=== PATIENT | male | born 1975 | race Hispanic/Latino ===

== ENCOUNTER 2017-12-14 04:58 | Emergency (ER) | payer SELFPAY ==
[2017-12-14] MEDS ORDERED: NA CHLORIDE 0.9% 1,000 ML ONE ×4 (05:33→11:52)
[2017-12-14] MEDS ORDERED: ONDANSETRON 4 MG/2 ML VIAL ONE (05:33)
[2017-12-14 06:01] LABS: Absolute Lymphocytes (CBC) 0.9 K/uL (0.7-4.9); Absolute Monocytes 1.2 K/uL (0.1-1.3); Absolute Neutrophil 4.6 K/uL (1.8-8.0); Basophils % 0.4 % (0-1.3); Eosinophils % 5.3 % (0-4.4); Hematocrit 46.9 % (39.6-49.0); MCH 31.3 pg (27.0-35.0); MCV 91.7 fL (80-100); MPV 9.8 fL (7.6-11.3); Monocytes % 17.3 % (3.3-12.3); RBC Red Blood Cell Count 5.12 M/uL (4.33-5.43)
[2017-12-14 06:04] LABS: Potassium 3.3 mEq/L (3.6-5.0)
[2017-12-14 06:10] LABS: Albumin 3.9 g/dL (3.2-5.5); Bilirubin Direct 0.3 mg/dL (0-0.2); Bilirubin Total 1.3 mg/dL (0.3-1.2); Protein, Total 6.6 g/dL (6.0-8.3)
[2017-12-14] MEDS ORDERED: KCL 20 MEQ/100 mL IVPB 20 MEQ/100 ML BAG IV ONE (06:18)
[2017-12-14 07:07] LABS: Blood Morphology Comment NOT SEEN (NOT SEEN); Platelet Estimate ADEQ
--- NOTE | 2017-12-14 08:27 | RAD REPORT ---
EXAM DESCRIPTION: CT - Abdomen Pelvis W Contrast - 12/14/2017 7:51 am CLINICAL HISTORY: Abdominal pain, nausea vomiting and diarrhea COMPARISON: None. TECHNIQUE: Biphasic, helical CT imaging of the abdomen and pelvis was performed following 100 ml non -ionic IV contrast. Oral contrast was given. All CT scans are performed using dose optimization technique as appropriate and may include automated exposure control or mA/KV adjustment according to patient size. FINDINGS: No suspicious findings in the lung bases. The liver, spleen, and pancreas show no suspicious findings. Gallbladder and biliary tree are also wi thout suspicious finding. Liver does demonstrate a mild diffuse fatty infiltration pattern. Symmetric renal function is seen with no hydronephrosis or suspicious renal mass. No pyelonephritis o r acute renal parenchymal process seen. A 2.5 cm cyst is present upper pole left kidney. No significa nt adrenal finding. Partially filled urinary bladder shows no suspicious finding. Prostate gland and seminal vesicles within normal limits. No gastric dilatation or gastric wall thickening. No delay in transit of contrast into the small dioni l. Duodenum is normal. Beginning at the ligament of Treitz, there is progressive dilatation of the sm all bowel. There is an abrupt transition back to normal diameter small bowel in the mid abdomen at th e umbilical level. At the transition point there is no mass or wall thickening. Patient has had no pr ior surgery. Distal small bowel is decompressed. Oral contrast has reached the small bowel distal to the transition point. The appendix is normal. No acute colon process. No free air, free fluid or inflammatory stranding. No mass or bulky lymphadenopathy. Small fat fille d inguinal hernias are present. No suspicious bony findings. IMPRESSION: Partial small bowel obstruction pattern. There is dilatation of the entire jejunum with an abrupt transition back to normal diameter small bowel in the mid abdomen umbilical level. At the transition point there is no intrinsic or extrinsic mass. Oral contrast has extended beyond th e transition point. Etiology for the small bowel dilatation is unknown. Adhesion or internal hernia would be unlikely giv en the absence of any prior surgery. No intussusception. No abscess, free air or other surgically emergent finding. Mild fatty infiltration pattern to the liver.
[2017-12-14] MEDS ORDERED: NA CHLORIDE 0.9% 250 ML ONE (08:28)
[2017-12-14] MEDS ORDERED: METRONIDAZOLE 500mg IVPB 0 MG/0 ML BAG IV ONE (08:39)
[2017-12-14] MEDS ORDERED: CIPROFLOXACIN 400mg IV 0 MG/0 ML BAG IV ONE (08:39)
--- NOTE | 2017-12-14 09:22 | ER ---
Nurse's Notes [facility] Name: Naresh Wheatley Age: 42 yrs Sex: Male : 1975 Arrival Date: 12/14/2017 Time: 05:03 Bed 18 Private MD: Diagnosis: Other intestinal obstruction-partial sbo;Abdominal tenderness;Vomiting;Unspecified jaundice;Hypokalemia Presentation: 12/14 05:00 Presenting complaint: Patient states: He has had nausea, vomiting and diarrhea since ea Monday. Pt reports abdominal pain started tonight and he has been having bouts of diarrhea every thirty minutes. Transition of care: patient was not received from another setting of care. Onset of symptoms was December 14, 2017. Initial Sepsis Screen: Does the patient meet any 2 criteria? No. Patient's initial sepsis screen is negative. Does the patient have a suspected source of infection? No. Patient's initial sepsis screen is negative. Care prior to arrival: Medication(s) given: Pepto Bismol at about 2200 last night. 05:00 Method Of Arrival: Ambulatory ea 05:00 Acuity: CAHGO 3 ea Triage Assessment: 05:00 General: Appears uncomfortable, Behavior is calm, appropriate for age. Pain: Complains ea of pain in abdomen Pain currently is 8 out of 10 on a pain scale. Quality of pain is described as crampy. EENT: No signs and/or symptoms were reported regarding the EENT system. Neuro: Level of Consciousness is awake, alert, obeys commands, Oriented to person, place, time, situation. Cardiovascular: Heart tones S1 S2 present Patient's skin is warm and dry. Respiratory: Airway is patent Respiratory effort is even, unlabored, Respiratory pattern is regular, symmetrical, Breath sounds are clear bilaterally. GI: Abdomen is distended, Bowel sounds present X 4 quads. Abd is soft X 4 quads Abdomen is tender to palpation X 4 quads. GI: Reports lower abdominal pain, upper abdominal pain, bloating, cramping, diarrhea, nausea, vomiting, since monday. : No signs and/or symptoms were reported regarding the genitourinary system. Historical: - Allergies: 05:39 No Known Allergies; ea - Home Meds: 05:16 None [Active]; ea - PMHx: 05:16 None; ea - PSHx: 05:16 None; ea - Immunization history:: Adult Immunizations up to date. - Social history:: Smoking status: Patient uses tobacco products, smokes one pack cigarettes per day. - Family history:: not pertinent. - Hospitalizations: : No recent hospitalization is reported. Screenin:18 Abuse screen: Denies threats or abuse. Nutritional screening: No deficits noted. ea Tuberculosis screening: No symptoms or risk factors identified. Fall Risk None identified. Assessment: 05:39 Reassessment: Patient and/or family updated on plan of care and expected duration. Pain ea level reassessed. Patient is alert, oriented x 3, equal unlabored respirations, skin warm/dry/pink. 05:58 Reassessment: Pt finished drinking contrast, CT notified. ea 06:34 Reassessment: Patient and/or family updated on plan of care and expected duration. Pain ea level reassessed. Patient is alert, oriented x 3, equal unlabored respirations, skin warm/dry/pink. 07:00 General: Appears in no apparent distress. comfortable, Behavior is calm, cooperative. rb1 Pain: Complains of pain in abdomen Pain currently is 6 out of 10 on a pain scale. Neuro: Level of Consciousness is awake, alert, obeys commands, Oriented to person, place, time, situation. Cardiovascular: Capillary refill < 3 seconds is brisk in bilateral fingers. Respiratory: Airway is patent Respiratory effort is even, unlabored, Respiratory pattern is regular, symmetrical. Derm: Skin is pink, warm \\T\\ dry. 08:00 Reassessment: Patient appears in no apparent distress at this time. Patient and/or rb1 family updated on plan of care and expected duration. Pain level reassessed. Patient is alert, oriented x 3, equal unlabored respirations, skin warm/dry/pink. 09:20 Reassessment: Pt requesting to go outside and smoke. Pt was notified that this is a aa5 smoke-free campus and pt states "well I don't care I am going to rip out my IV if you don't take it out". Pt was encouraged to stay and speak to Dr. Gandhi about radiology and lab results, pt states "I'm not going to stay, I'm leaving" . Vital Signs: 05:00 BP 151 / 100; Pulse 100; Resp 18; Temp 97.5; Pulse Ox 98% on R/A; Weight 98.88 kg; ea Height 5 ft. 9 in. (175.26 cm); Pain 7/10; 06:34 BP 138 / 100; Pulse 87; Resp 18; Pulse Ox 99% on R/A; ea 07:00 BP 141 / 95; Pulse 89; Resp 17; Pulse Ox 98% on R/A; rb1 08:00 BP 118 / 75; Pulse 87; Resp 17; Pulse Ox 100% ; rb1 05:00 Body Mass Index 32.19 (98.88 kg, 175.26 cm) ea ED Course: 05:03 Patient arrived in ED. al2 05:11 Opal Pulido RN is Primary Nurse. ea 05:13 Ladarius Gordon MD is Attending Physician. rn 05:15 Triage completed. ea 05:20 Patient has correct armband on for positive identification. Bed in low position. Call ea light in reach. Side rails up X 1. 05:20 Arm band placed on right wrist. Patient placed in an exam room, on a stretcher, on ea pulse oximetry. 05:30 Inserted saline lock: 20 gauge in right antecubital area, using aseptic technique. ea Blood collected. 07:07 Report given to Reggie SWEET. ea 07:20 Attending Physician role handed off by Ladarius Gordon MD jennifer 07:20 Sean Gandhi MD is Attending Physician. jennifer 07:50 CT Abd/Pelvis - W/Contrast In Process Unspecified. EDMS 09:20 IV discontinued, intact, bleeding controlled, No redness/swelling at site. Pressure aa5 dressing applied. 09:22 No provider procedures requiring assistance completed. rb1 09:24 Primary Nurse role handed off by Opal Pulido RN aa5 10:08 Pippa Chun, MICKI is Primary Nurse. rb1 Administered Medications: Discontinued: NS 0.9% 250 ml IV at calculated rate once 05:36 Drug: Zofran 4 mg Route: IVP; Site: right antecubital; ea 06:32 Follow up: Response: No adverse reaction; Marked relief of symptoms ea 05:37 Drug: NS 0.9% 1000 ml Route: IV; Rate: 1000 ml; Site: right antecubital; ea 06:32 Follow up: Response: No adverse reaction; IV Status: Completed infusion; IV Intake: ea 1000ml 06:33 Drug: Potassium Chloride 20 mEq Route: IV; Rate: calculated rate; Site: right ea antecubital; 08:30 Follow up: IV Status: Completed infusion rb1 08:32 Drug: NS 0.9% 250 ml {Note: Administered to dilute the potassium drip..} Route: IV; rb1 Rate: calculated rate; Site: right antecubital; 08:35 Follow up: IV Status: Order to discontinue infusion rb1 08:36 Drug: NS 0.9% 1000 ml Route: IV; Rate: 1 bolus; Site: right antecubital; rb1 09:22 Follow up: IV Status: Completed infusion; pt. requested to stop the IV fluids because rb1 he was leaving. 10:10 Not Given (pt. eloped): Cipro 400 mg 200 ml IVPB once over 60 mins rb1 10:10 Not Given (Patient Refused; pt. eloped): Flagyl 500 mg 100 ml IVPB at 200 ml/hr once rb1 over 30 mins Intake: 06:32 IV: 1000ml; Total: 1000ml. ea Outcome: 09:22 Patient left the ED. aaAnjum 09:22 Eloped from patient exam room. rb1 09:22 Condition: stable 09:22 Patient left the ED. rb1 Signatures: Dispatcher [employer] EDMS Sean Gandhi MD MD cha Nieto, Roman, MD MD rn Calderon, Audri RN RN aa5 Pippa Chun, RN RN rb1 Opal Pulido RN RN ea Love, Angelica al2 Corrections: (The following items were deleted from the chart) 10:15 10:14 Patient left the ED. rb1 rb1
--- NOTE | 2017-12-14 09:22 | EDPHYS ---
Physician Documentation [facility] Name: Naresh Wheatley Age: 42 yrs Sex: Male : 1975 Arrival Date: 12/14/2017 Time: 05:03 Bed 18 Private MD: ED Physician Sean Gandhi HPI: 12/14 05:53 This 42 yrs old Male presents to ER via Ambulatory with complaints of Diarrhea.rn 05:53 The patient presents to the emergency department with nausea, vomiting, diarrhea, rn abdominal pain. Onset: The symptoms/episode began/occurred 2 day(s) ago. Possible causes: unknown. Severity of symptoms: At their worst the symptoms were moderate in the emergency department the symptoms are unchanged. The patient has not experienced similar symptoms in the past. Reports nausea/vomiting for 2 days, no longer vomiting, but having frequent non-bloody diarrhea, + mid vague abd pain. No fever. . Historical: - Allergies: 05:39 No Known Allergies; ea - Home Meds: 05:16 None [Active]; ea - PMHx: 05:16 None; ea - PSHx: 05:16 None; ea - Immunization history:: Adult Immunizations up to date. - Social history:: Smoking status: Patient uses tobacco products, smokes one pack cigarettes per day. - Family history:: not pertinent. - Hospitalizations: : No recent hospitalization is reported. ROS: 05:53 Constitutional: Negative for fever, chills, and weight loss, Eyes: Negative for injury, rn pain, redness, and discharge, Cardiovascular: Negative for chest pain, palpitations, and edema, Respiratory: Negative for shortness of breath, cough, wheezing, and pleuritic chest pain, Abdomen/GI: Negative for constipation MS/Extremity: Negative for injury and deformity, Skin: Negative for injury, rash, and discoloration, Neuro: Negative for headache, numbness, tingling, and seizure. Exam: 05:53 Constitutional: This is a well developed, well nourished patient who is awake, alert, rn and in no acute distress. Head/Face: Normocephalic, atraumatic. Eyes: Pupils equal round and reactive to light, extra-ocular motions intact. Lids and lashes normal. Conjunctiva and sclera are non-icteric and not injected. Cornea within normal limits. Periorbital areas with no swelling, redness, or edema. Neck: Trachea midline, no thyromegaly or masses palpated, and no cervical lymphadenopathy. Supple, full range of motion without nuchal rigidity, or vertebral point tenderness. No Meningismus. Cardiovascular: Regular rate and rhythm with a normal S1 and S2. No gallops, murmurs, or rubs. Normal PMI, no JVD. No pulse deficits. Respiratory: Lungs have equal breath sounds bilaterally, clear to auscultation and percussion. No rales, rhonchi or wheezes noted. No increased work of breathing, no retractions or nasal flaring. Abdomen/GI: soft, + mild periumbilical tenderness, no reobund, no peritoneal signs, no masses MS/ Extremity: Pulses equal, no cyanosis. Neurovascular intact. Full, normal range of motion. Equal circumference. Neuro: Awake and alert, GCS 15, oriented to person, place, time, and situation. Cranial nerves II-XII grossly intact. Motor strength 5/5 in all extremities. Sensory grossly intact. Vital Signs: 05:00 BP 151 / 100; Pulse 100; Resp 18; Temp 97.5; Pulse Ox 98% on R/A; Weight 98.88 kg; ea Height 5 ft. 9 in. (175.26 cm); Pain 7/10; 06:34 BP 138 / 100; Pulse 87; Resp 18; Pulse Ox 99% on R/A; ea 07:00 BP 141 / 95; Pulse 89; Resp 17; Pulse Ox 98% on R/A; rb1 08:00 BP 118 / 75; Pulse 87; Resp 17; Pulse Ox 100% ; rb1 05:00 Body Mass Index 32.19 (98.88 kg, 175.26 cm) ea MDM: 05:13 Patient medically screened. rn 12/14 05:19 Order name: Basic Metabolic Panel; Complete Time: 06:14 rn 12/14 05:19 Order name: CBC with Diff; Complete Time: 07:16 rn 12/14 05:19 Order name: Creatinine for Radiology; Complete Time: 06:06 rn 12/14 05:19 Order name: Hepatic Function; Complete Time: 06:14 rn 12/14 05:19 Order name: Lipase; Complete Time: 06:14 rn 12/14 05:19 Order name: Flu; Complete Time: 07:16 rn 12/14 05:19 Order name: CT Abd/Pelvis - W/Contrast; Complete Time: 08:32 rn 12/14 06:05 Order name: Manual Differential; Complete Time: 07:16 EDMS 12/14 07:52 Order name: Hepatitis Panel jennifer 12/14 05:19 Order name: IV Saline Lock; Complete Time: 05:30 rn 12/14 05:19 Order name: Labs collected and sent; Complete Time: 05:30 rn Administered Medications: Discontinued: NS 0.9% 250 ml IV at calculated rate once 05:36 Drug: Zofran 4 mg Route: IVP; Site: right antecubital; ea 06:32 Follow up: Response: No adverse reaction; Marked relief of symptoms ea 05:37 Drug: NS 0.9% 1000 ml Route: IV; Rate: 1000 ml; Site: right antecubital; ea 06:32 Follow up: Response: No adverse reaction; IV Status: Completed infusion; IV Intake: ea 1000ml 06:33 Drug: Potassium Chloride 20 mEq Route: IV; Rate: calculated rate; Site: right ea antecubital; 08:30 Follow up: IV Status: Completed infusion rb1 08:32 Drug: NS 0.9% 250 ml {Note: Administered to dilute the potassium drip..} Route: IV; rb1 Rate: calculated rate; Site: right antecubital; 08:35 Follow up: IV Status: Order to discontinue infusion rb1 08:36 Drug: NS 0.9% 1000 ml Route: IV; Rate: 1 bolus; Site: right antecubital; rb1 09:22 Follow up: IV Status: Completed infusion; pt. requested to stop the IV fluids because rb1 he was leaving. 10:10 Not Given (pt. eloped): Cipro 400 mg 200 ml IVPB once over 60 mins rb1 10:10 Not Given (Patient Refused; pt. eloped): Flagyl 500 mg 100 ml IVPB at 200 ml/hr once rb1 over 30 mins Disposition: 12/14/17 09:22 Patient left the facility after being seen by provider. Preliminary diagnosis are Other intestinal obstruction - partial sbo, Abdominal tenderness, Vomiting, Unspecified jaundice, Hypokalemia. - Patient left due to (see nurse's notes). - Condition is Stable. - Problem is new. - Symptoms have improved. Signatures: Dispatcher [employer] EDSean Goddard MD MD jennifer Gordon, Ladarius, MD MD rn Gomes, Sindi, RN RN aa5 Pippa Chun, RN RN rb1 Opal Pulido RN RN virgilio Corrections: (The following items were deleted from the chart) 10:05 09:22 12/14/2017 09:22 Patient left the facility after being seen by provider. Reason jennifer stated they are leaving due to (see nurse's notes). aa5 10:14 10:05 12/14/2017 09:22 Patient left the facility after being seen by provider. rb1 Preliminary diagnosis is Other intestinal obstruction - partial sbo; Abdominal tenderness; Vomiting; Unspecified jaundice; Hypokalemia. Reason stated they are leaving due to (see nurse's notes). Condition is Stable. Problem is new. Symptoms have improved. jennifer
[2017-12-14] MEDS ORDERED: NICOTINE 21 MG/PAT TD ONE (11:51)
[2017-12-14] MEDS ORDERED: CIPROFLOXACIN 400mg IV 400 MG/200 ML BAG IV ONE (11:51)
[2017-12-14] MEDS ORDERED: METRONIDAZOLE 500mg IVPB 500 MG/100 ML BAG IV ONE (11:52)
[2017-12-17 04:52] LABS: HBsAG Nonreactive (Nonreactive); Hepatitis A IgM Antibody Nonreactive
== END 2017-12-14 10:14 | disposition left against medical advice (07) ==
LOC: ER 04:58
DX: K56.699 Other intestinal obstruction unspecified as to partial versus complete obstruction (principal); R17 Unspecified jaundice; E87.6 Hypokalemia; R10.819 Abdominal tenderness, unspecified site; F17.210 Nicotine dependence, cigarettes, uncomplicated
CPT/HCPCS: 36415; 74177; 80048; 80074; 80076; 83690; 85025; 87804; 96361; 96365; 96366; 96375; 99284; J0744; J2405; J7030; Q9967

== ENCOUNTER 2017-12-14 10:26 | Inpatient (IN) | payer SELFPAY ==
--- NOTE | 2017-12-14 11:36 | EDPHYS ---
Physician Documentation [facility] Name: Naresh Wheatley Age: 42 yrs Sex: Male : 1975 Arrival Date: 12/14/2017 Time: 10:35 Bed 13 Private MD: ED Physician Sean Gandhi HPI: 12/14 11:29 This 42 yrs old Male presents to ER via Ambulatory with complaints of jennifer Abdominal Pain. 11:29 The patient presents with abdominal pain. Onset: The symptoms/episode began/occurred 3 jennifer day(s) ago. The patient presents to the emergency department with nausea, vomiting. Onset: The symptoms/episode began/occurred 3 day(s) ago. Possible causes:. The symptoms are aggravated by nothing. The symptoms are alleviated by nothing. Associated signs and symptoms: The patient has no apparent associated signs or symptoms. The symptoms do not radiate. Associated signs and symptoms: Pertinent positives: nausea and vomiting. Historical: - Allergies: 10:41 No Known Allergies; aj - Home Meds: 10:41 None [Active]; aj - PMHx: 10:41 None; aj - PSHx: 10:41 None; aj - Immunization history:: Adult Immunizations up to date. - Social history:: Smoking status: Patient uses tobacco products, smokes one pack cigarettes per day. - Family history:: not pertinent. ROS: 11:29 Constitutional: Negative for fever, chills, and weight loss, Eyes: Negative for injury, jennifer pain, redness, and discharge, ENT: Negative for injury, pain, and discharge, Neck: Negative for injury, pain, and swelling, Cardiovascular: Negative for chest pain, palpitations, and edema, Respiratory: Negative for shortness of breath, cough, wheezing, and pleuritic chest pain, Back: Negative for injury and pain, : Negative for injury, bleeding, discharge, and swelling, MS/Extremity: Negative for injury and deformity, Skin: Negative for injury, rash, and discoloration, Neuro: Negative for headache, weakness, numbness, tingling, and seizure, Psych: Negative for depression, anxiety, suicide ideation, homicidal ideation, and hallucinations, Allergy/Immunology: Negative for hives, rash, and allergies, Endocrine: Negative for neck swelling, polydipsia, polyuria, polyphagia, and marked weight changes, Hematologic/Lymphatic: Negative for swollen nodes, abnormal bleeding, and unusual bruising. 11:29 Abdomen/GI: Positive for abdominal pain, nausea, vomiting, and diarrhea, of the right upper quadrant, left upper quadrant, right lower quadrant and left lower quadrant. Exam: 11:29 Constitutional: This is a well developed, well nourished patient who is awake, alert, jennifer and in no acute distress. Head/Face: Normocephalic, atraumatic. ENT: Nares patent. No nasal discharge, no septal abnormalities noted. Tympanic membranes are normal and external auditory canals are clear. Oropharynx with no redness, swelling, or masses, exudates, or evidence of obstruction, uvula midline. Mucous membranes moist. Neck: Trachea midline, no thyromegaly or masses palpated, and no cervical lymphadenopathy. Supple, full range of motion without nuchal rigidity, or vertebral point tenderness. No Meningismus. Chest/axilla: Normal chest wall appearance and motion. Nontender with no deformity. No lesions are appreciated. Cardiovascular: Regular rate and rhythm with a normal S1 and S2. No gallops, murmurs, or rubs. Normal PMI, no JVD. No pulse deficits. Respiratory: Lungs have equal breath sounds bilaterally, clear to auscultation and percussion. No rales, rhonchi or wheezes noted. No increased work of breathing, no retractions or nasal flaring. Back: No spinal tenderness. No costovertebral tenderness. Full range of motion. Male : Normal genitalia with no discharge or lesions. MS/ Extremity: Pulses equal, no cyanosis. Neurovascular intact. Full, normal range of motion. Neuro: Awake and alert, GCS 15, oriented to person, place, time, and situation. Cranial nerves II-XII grossly intact. Motor strength 5/5 in all extremities. Sensory grossly intact. Cerebellar exam normal. Normal gait. Psych: Awake, alert, with orientation to person, place and time. Behavior, mood, and affect are within normal limits. 11:29 Eyes: Sclera: icterus. 11:29 Abdomen/GI: Inspection: distension, Bowel sounds: hyperactive, Palpation: mild abdominal tenderness, moderate abdominal tenderness, in the suprapubic area, right upper quadrant, left upper quadrant, right lower quadrant and left lower quadrant, Liver: is firm, Hernia: not appreciated. Vital Signs: 10:41 BP 168 / 96; Pulse 93; Resp 18; Temp 98.5; Pulse Ox 98% on R/A; Weight 98.88 kg; Height aj 5 ft. 9 in. (175.26 cm); Pain 8/; 13:00 BP 152 / 87; Pulse 91; Resp 18; Temp 98.2; Pulse Ox 98% on R/A; ph 10:41 Body Mass Index 32.19 (98.88 kg, 175.26 cm) aj MDM: 11:[address] [facility] 11:46 Data reviewed: vital signs, nurses notes, lab test result(s), EKG, radiologic studies, [facility] CT scan, plain films. 12/14 11:45 Order name: Abdomen W Erect EDNE 12/14 11:45 Order name: CONS Physician Consult [facility] 12/14 11:45 Order name: CONS Physician Consult EDNE Administered Medications: 12:22 Drug: Flagyl 500 mg Volume: 100 ml; Route: IVPB; Rate: 200 ml/hr; Infused Over: 30 ph mins; Site: right antecubital; 13:44 Follow up: Response: No adverse reaction; IV Status: Completed infusion ph 12:22 Drug: Nicoderm CQ 21 mg/24 hr 21 mg {Note: applied to R upper arm.} Route: Transdermal; ph Site: affected area; 13:43 Follow up: Response: No adverse reaction ph 12:23 Drug: NS 0.9% 1000 ml Route: IV; Rate: 1 bolus; Site: right antecubital; ph 13:44 Follow up: Response: No adverse reaction; IV Status: Completed infusion ph 13:00 Drug: Cipro 400 mg Volume: 200 ml; Route: IVPB; Infused Over: 60 mins; Site: right ph antecubital; 13:44 Follow up: Response: No adverse reaction; IV Status: Infusion continued upon admission ph Disposition: 12/14/17 11:35 Hospitalization ordered by Portia Jones for Inpatient Admission. Preliminary diagnosis are Abdominal tenderness, Vomiting, Other intestinal obstruction - partiual sbo, Hypokalemia, Unspecified jaundice. - Bed requested for Telemetry/MedSurg (Inpatient). - Status is Inpatient Admission. ph - Condition is Fair. - Problem is new. - Symptoms have improved. UTI on Admission? No Signatures: Dispatcher [employer] EDCarla Sol, RN RN Renetta Allen RN RN aj Anderson, Corey, MD MD cha Hall, Patricia, RN RN ph Corrections: (The following items were deleted from the chart) 12:47 11:35 Hospitalization Ordered by Portia Jones MD for Inpatient Admission. Preliminary dw diagnosis is Abdominal tenderness; Vomiting; Other intestinal obstruction - partiual sbo; Hypokalemia; Unspecified jaundice. Bed requested for Telemetry/MedSurg (Inpatient). Status is Inpatient Admission. Condition is Fair. Problem is new. Symptoms have improved. UTI on Admission? No. [facility] 13:45 12:47 12/14/2017 11:35 Hospitalization Ordered by Portia Jones MD for Inpatient ph Admission. Preliminary diagnosis is Abdominal tenderness; Vomiting; Other intestinal obstruction - partiual sbo; Hypokalemia; Unspecified jaundice. Bed requested for Telemetry/MedSurg (Inpatient). Status is Inpatient Admission. Condition is Fair. Problem is new. Symptoms have improved. UTI on Admission? No. dw
--- NOTE | 2017-12-14 11:36 | ER ---
Nurse's Notes [facility] Name: Naresh Wheatley Age: 42 yrs Sex: Male : 1975 Arrival Date: 12/14/2017 Time: 10:35 Bed 13 Private MD: Diagnosis: Abdominal tenderness;Vomiting;Other intestinal obstruction-partiual sbo;Hypokalemia;Unspecified jaundice Presentation: 12/14 10:39 Presenting complaint: Patient states: Reports lower abdominal pain that started on aj Monday. Patient seen in this ER earlier today and eloped, was called to come back. Transition of care: patient was not received from another setting of care. Onset of symptoms was December 10, 2017. Initial Sepsis Screen: Does the patient meet any 2 criteria? No. Patient's initial sepsis screen is negative. Does the patient have a suspected source of infection? No. Patient's initial sepsis screen is negative. Care prior to arrival: None. 10:39 Method Of Arrival: Ambulatory 10:39 Acuity: CHAGO 3 aj Triage Assessment: 10:41 General: Appears in no apparent distress. comfortable, Behavior is calm, cooperative, aj appropriate for age. Pain: Complains of pain in right lower quadrant and left lower quadrant. Neuro: Level of Consciousness is awake, alert, obeys commands, Oriented to person, place, time, situation, Appropriate for age. Respiratory: Airway is patent Respiratory effort is even, unlabored, Respiratory pattern is regular, symmetrical. GI: Reports lower abdominal pain, bloating. Derm: Skin is intact, is healthy with good turgor, Skin is pink, warm \T\ dry. normal. Historical: - Allergies: 10:41 No Known Allergies; aj - Home Meds: 10:41 None [Active]; aj - PMHx: 10:41 None; aj - PSHx: 10:41 None; aj - Immunization history:: Adult Immunizations up to date. - Social history:: Smoking status: Patient uses tobacco products, smokes one pack cigarettes per day. - Family history:: not pertinent. Screenin:41 Abuse screen: Denies threats or abuse. Denies injuries from another. Nutritional ph screening: No deficits noted. Tuberculosis screening: No symptoms or risk factors identified. Fall Risk None identified. Assessment: 11:30 General: Appears in no apparent distress. comfortable, well groomed, Behavior is calm, ph cooperative, appropriate for age. Pain: Complains of pain in abdomen. Neuro: Level of Consciousness is awake, alert, obeys commands, Oriented to person, place, time, situation. Cardiovascular: Capillary refill < 3 seconds Patient's skin is warm and dry. Respiratory: Airway is patent Respiratory effort is even, unlabored. GI: Bowel sounds present X 4 quads. Abd is soft X 4 quads Abdomen is tender to palpation X 4 quads. Reports lower abdominal pain, upper abdominal pain, cramping, nausea. Derm: Skin is intact, is healthy with good turgor, Skin is pink, warm \T\ dry. Musculoskeletal: Circulation, motion, and sensation intact. Range of motion: intact in all extremities. 12:30 Reassessment: Patient appears in no apparent distress at this time. Patient and/or ph family updated on plan of care and expected duration. Pain level reassessed. Patient is alert, oriented x 3, equal unlabored respirations, skin warm/dry/pink. Pt resting quietly, awaiting radiology results and room assignment, family at bedside. 13:39 Reassessment: Patient appears in no apparent distress at this time. Patient and/or ph family updated on plan of care and expected duration. Pain level reassessed. Patient is alert, oriented x 3, equal unlabored respirations, skin warm/dry/pink. Report called to [place] SWEET, pt taken to inpatient room via wheelchair. Vital Signs: 10:41 BP 168 / 96; Pulse 93; Resp 18; Temp 98.5; Pulse Ox 98% on R/A; Weight 98.88 kg; Height aj 5 ft. 9 in. (175.26 cm); Pain 8/10; 13:00 BP 152 / 87; Pulse 91; Resp 18; Temp 98.2; Pulse Ox 98% on R/A; ph 10:41 Body Mass Index 32.19 (98.88 kg, 175.26 cm) ED Course: 10:35 Patient arrived in ED. aj 10:41 Triage completed. aj 10:41 Arm band placed on right wrist. Patient placed in an exam room. aj 11:25 Sean Gandhi MD is Attending Physician. jennifer 11:29 Olga Langford RN is Primary Nurse. ph 11:34 Portia Jones MD is Hospitalizing Provider. jennifer 13:41 Patient has correct armband on for positive identification. Placed in gown. Bed in low ph position. Call light in reach. Side rails up X 1. Pulse ox on. NIBP on. Warm blanket given. 13:41 No provider procedures requiring assistance completed. ph 13:42 Inserted saline lock: 20 gauge in right antecubital area, using aseptic technique. ph Patient admitted, IV remains in place. Administered Medications: 12:22 Drug: Flagyl 500 mg Volume: 100 ml; Route: IVPB; Rate: 200 ml/hr; Infused Over: 30 ph mins; Site: right antecubital; 13:44 Follow up: Response: No adverse reaction; IV Status: Completed infusion ph 12:22 Drug: Nicoderm CQ 21 mg/24 hr 21 mg {Note: applied to R upper arm.} Route: Transdermal; ph Site: affected area; 13:43 Follow up: Response: No adverse reaction ph 12:23 Drug: NS 0.9% 1000 ml Route: IV; Rate: 1 bolus; Site: right antecubital; ph 13:44 Follow up: Response: No adverse reaction; IV Status: Completed infusion ph 13:00 Drug: Cipro 400 mg Volume: 200 ml; Route: IVPB; Infused Over: 60 mins; Site: right ph antecubital; 13:44 Follow up: Response: No adverse reaction; IV Status: Infusion continued upon admission ph Outcome: 11:35 Decision to Hospitalize by Provider. [facility] 13:42 Admitted to Med/surg accompanied by tech, family with patient, via wheelchair, room ph 220, with chart. 13:42 Condition: stable 13:42 Instructed on the need for admit. 13:45 Patient left the ED. ph Signatures: Renetta Keane, RN RN Sean Roberts MD MD cha Hall, Patricia RN RN ph
[2017-12-14] MEDS ORDERED: NS KCL 20MEQ 20 MEQ/1,000 ML BAG IV SCH (12:00)
[2017-12-14] MEDS ORDERED: METRONIDAZOLE 500mg IVPB 500 MG/100 ML BAG IV SCH (12:30)
[2017-12-14] MEDS ORDERED: CIPROFLOXACIN 400mg IV 400 MG/200 ML BAG IV SCH (12:30)
--- NOTE | 2017-12-14 13:09 | RAD REPORT ---
EXAM DESCRIPTION: RAD - Abdomen W Erect - 12/14/2017 1:00 pm CLINICAL HISTORY: Pain COMPARISON: 12/14/2017 FINDINGS: Multiple dilated small bowel loops are seen, greatest in the left upper quadrant, compatib le with partial mechanical small bowel obstruction. No suspicious calcifications. No significant bony findings. Contrast is present in the urinary bladder and in the colon. IMPRESSION: Moderate partial mechanical small bowel obstruction.
[2017-12-14] MEDS ORDERED: NA CHLORIDE 0.9% 1,000 ML IV SCH (13:33)
[2017-12-14] MEDS ORDERED: ONDANSETRON 4 MG/2 ML VIAL IV PRN (13:33)
[2017-12-14] MEDS ORDERED: ACETAMINOPHEN 500 MG TAB PO PRN (13:33)
--- NOTE | 2017-12-14 14:53 | P.HP ---
Certification for Inpatient Patient admitted to: Observation With expected LOS: <2 Midnights Patient will require the following post-hospital care: None Practitioner: I am a practitioner with admitting privileges, knowledge of patient current condition, hospital course, and medical plan of care. Services: Services provided to patient in accordance with Admission requirements found in Title 42 Section 412.3 of the Code of Federal Regulations Patient History Date of Service: 12/14/17 Primary Care Provider: None Reason for admission: SBO History of Present Illness: 42 y/o M with no PMHx presented to the ED with abd pain was found to have SBO and was referred for admission. However Pt left AMA from the ER first time. He returned to the ER again due to worsening pain and was referred again for admission. Before I can see the patient, he left AMA again. Pt was refusing all care here in the hospital and wanted to order Pizza. Pt was notified by RN that he cannot have anything by mouth and need to follow reccs by Doctor. He then proceeded to leave AMA. I was not able to assess the pt and he left before I Saw the patient. Allergies No Known Allergies Allergy (Unverified 01/18/16 13:23) Review of Systems is unable to be obtained Physical Examination - Vital Signs Temperature: 98.2 F Blood Pressure: 152/87 Pulse: 91 Respirations: 18 - Physical Exam Other Physical/Emotional Findings: Unable to do Assessment and Plan - Problems (Diagnosis) (1) SBO (small bowel obstruction) Status: Acute Plan: Partial SBO - Plan patient left AMA before I could assess the patient. - Advance Directives Does patient have a Living Will: No Does patient have a Durable POA for Healthcare: No
== END 2017-12-14 14:36 | disposition left against medical advice (07) | DRG 390 ==
LOC: ER 10:26 → ERHOLD 11:37 → 2ND 13:33
PROVIDERS: ADMIT Family Medicine; ATTEND Family Medicine
DX: K56.609 Unspecified intestinal obstruction, unspecified as to partial versus complete obstruction (principal); Z53.21 Procedure and treatment not carried out due to patient leaving prior to being seen by health care provider; F17.210 Nicotine dependence, cigarettes, uncomplicated
CPT/HCPCS: 36415; 74019; 84443; 96365; 99285

== ENCOUNTER 2017-12-14 17:41 | Emergency (ER) | payer SELFPAY ==
--- NOTE | 2017-12-14 18:55 | ER ---
Nurse's Notes [facility] Name: Naresh Wheatley Age: 42 yrs Sex: Male : 1975 Arrival Date: 12/14/2017 Time: 17:45 Bed Waiting Private MD: Diagnosis: Presentation: 12/14 17:59 Presenting complaint: Patient states: Patient eloped from this hospital and went to eat aj after being told he was NPO. Returning to ER to be treated for bowel obstruction. Transition of care: patient was not received from another setting of care. Onset of symptoms was December 14, 2017. Initial Sepsis Screen: Does the patient meet any 2 criteria? No. Patient's initial sepsis screen is negative. Does the patient have a suspected source of infection? No. Patient's initial sepsis screen is negative. Care prior to arrival: None. 17:59 Method Of Arrival: Ambulatory 17:59 Acuity: CHAGO 3 aj Triage Assessment: 18:01 General: Appears in no apparent distress. comfortable, Behavior is calm, cooperative, aj appropriate for age. Pain: Complains of pain in abdomen. Neuro: Level of Consciousness is awake, alert, obeys commands, Oriented to person, place, time, situation, Appropriate for age. Respiratory: Airway is patent Respiratory effort is even, unlabored, Respiratory pattern is regular, symmetrical. GI: Abdomen is round Reports lower abdominal pain, upper abdominal pain, bloating, nausea. Derm: Skin is intact, is healthy with good turgor, Skin is pink, warm \T\ dry. normal. Historical: - Allergies: 18:01 No Known Allergies; aj - Home Meds: 18:01 None [Active]; aj - PMHx: 18:01 None; aj - PSHx: 18:01 None; aj - Immunization history:: Adult Immunizations up to date. - Social history:: Smoking status: Patient uses tobacco products, smokes one pack cigarettes per day. Assessment: 18:53 Reassessment: Eloped after speaking to Dr Jones. Vital Signs: 18:01 BP 135 / 88; Pulse 100; Resp 16; Temp 98.9; Pulse Ox 98% on R/A; Weight 101.15 kg; aj Height 5 ft. 9 in. (175.26 cm); Pain 5/10; 18:01 Body Mass Index 32.93 (101.15 kg, 175.26 cm) rudy ED Course: 17:45 Patient arrived in ED. sb2 18:00 Triage completed. aj 18:01 Arm band placed on right wrist. Patient placed in waiting room. aj 18:54 Portia Jones MD is Attending Physician. aj Administered Medications: No medications were administered Outcome: 18:54 Eloped from waiting room, Spoke with Dr Jones in ER, eloped after aj 18:54 Patient left the ED. aj Signatures: Renetta Keane, RN RN Marcelina Mai sb2
== END 2017-12-14 18:54 | disposition left against medical advice (07) ==
LOC: ER 17:41
DX: Z02.9 Encounter for administrative examinations, unspecified (principal)
CPT/HCPCS: 99281

== ENCOUNTER 2021-04-30 23:41 | Emergency (ER) | payer SELFPAY ==
[2021-05-01 01:03] LABS: Urine Blood Negative (Negative); Urine Glucose 2+ (Negative); Urine Protein Negative (Negative); Urine Specific Gravity 1.015 (1.005-1.030); Urine pH 5.5 (5.0-7.0)
[2021-05-01 01:06] LABS: Absolute Lymphocytes (CBC) 1.6 K/uL (0.7-4.9); Basophils % 0.7 % (0-1.3); Hematocrit 44.5 % (39.6-49.0); Lymphocytes % 12.2 % (15.3-44.8); MPV 9.7 fL (7.6-11.3); RBC Red Blood Cell Count 4.89 M/uL (4.33-5.43)
[2021-05-01] MEDS ORDERED: NA CHLORIDE 0.9% 2,000 ML ONE (01:11)
[2021-05-01 02:59] LABS: ALT/SGPT 36 U/L (12-78); Albumin 3.3 g/dL (3.4-5.0); Alkaline Phosphatase 166 U/L (45-117); BUN Blood Urea Nitrogen 14 mg/dL (7-18); Bicarbonate 17 mmol/L (21-32); Bilirubin Direct 0.1 mg/dL (0-0.2); Bilirubin Total 0.5 mg/dL (0.2-1.0); Glucose Level 371 mg/dL (74-106); Lipase 404 U/L (73-393); Sodium Level 134 mmol/L (136-145)
[2021-05-01 03:00] LABS: Potassium 3.6 mmol/L (3.5-5.1)
[2021-05-01 03:01] LABS: AST/SGOT 17 U/L (15-37)
[2021-05-01] MEDS ORDERED: NA CHLORIDE 0.9% 1,000 ML ONE (03:49)
[2021-05-01] MEDS ORDERED: INSULIN -REGULAR HUMAN 50 UNIT/0.5 ML ML ONE (03:49)
--- NOTE | 2021-05-01 04:17 | EDPHYS ---
Physician Documentation [facility] Name: Naresh Wheatley Age: 45 yrs Sex: Male : 1975 Arrival Date: 04/30/2021 Time: 23:56 Bed 15 Private MD: ED Physician Nehemias Guerrero HPI: 05/01 00:35 This 45 yrs old Male presents to ER via Ambulatory with complaints of Elevated cp Blood Glucose. 00:35 The patient or guardian reports hyperglycemia, polydipsia, polyuria. cp 00:35 Onset: The symptoms/episode began/occurred for weeks. Associated signs and symptoms: cp Pertinent positives: abdominal pain. Current symptoms: In the emergency department the patient's symptoms are unchanged from the initial presentation, despite home interventions. Historical: - Allergies: 00:04 No Known Allergies; lh3 - PMHx: 00:04 None; lh3 - Immunization history:: Adult Immunizations not up to date. - Social history:: Smoking status: Patient reports the use of cigarette tobacco products, smokes one pack cigarettes per day. ROS: 00:40 Constitutional: Negative for body aches, chills, fever, poor PO intake. cp 00:40 Cardiovascular: Negative for chest pain, edema, palpitations. cp 00:40 Respiratory: Negative for cough, shortness of breath, wheezing. 00:40 Abdomen/GI: Negative for abdominal pain, vomiting, diarrhea, constipation, anorexia, black/tarry stool, rectal bleeding. 00:40 : Negative for burning with urination. 00:40 Neuro: Negative for altered mental status, dizziness, headache, weakness. 00:40 Endocrine: Positive for polydipsia, polyuria. 00:40 All other systems are negative. Exam: 00:45 Constitutional: The patient appears in no acute distress, alert, awake, cp non-diaphoretic, non-toxic, well developed, well nourished. 00:45 Head/Face: Normocephalic, atraumatic. cp 00:45 Eyes: Periorbital structures: appear normal, Conjunctiva: normal, no exudate, no injection, Sclera: no appreciated abnormality, Lids and lashes: appear normal, bilaterally. 00:45 ENT: External ear(s): are unremarkable, Nose: is normal, Mouth: Lips: moist, Oral mucosa: pink and intact, moist, Posterior pharynx: Airway: no evidence of obstruction, patent. 00:45 Chest/axilla: Inspection: normal, Palpation: is normal, no crepitus, no tenderness. 00:45 Cardiovascular: Rate: tachycardic, Rhythm: regular, Edema: is not appreciated, JVD: is not appreciated. 00:45 Respiratory: the patient does not display signs of respiratory distress, Respirations: normal, no use of accessory muscles, no retractions, labored breathing, is not present, Breath sounds: are clear throughout, no decreased breath sounds, no stridor, no wheezing. 00:45 Abdomen/GI: Inspection: abdomen appears normal, Bowel sounds: active, all quadrants, Palpation: soft, in all quadrants, mild abdominal tenderness, in the left upper quadrant and left lower quadrant, rebound tenderness, is not appreciated, involuntary guarding, is not appreciated. 00:45 Back: pain, is absent, ROM is normal. 00:45 Neuro: Orientation: to person, place \T\ time. Mentation: is normal. Vital Signs: 00:00 BP 149 / 111; Pulse 110; Resp 18; Temp 99.1(O); Pulse Ox 99% on R/A; Height 5 ft. 9 in. lh3 (175.26 cm) (R); 02:57 BP 142 / 82; Pulse 89; Resp 18; Temp 98.2; Pulse Ox 100% ; Pain 0/10; sj1 04:30 BP 140 / 80; Pulse 76; Resp 18; Temp 98.4; Pulse Ox 99% ; Pain 0/10; sj1 MDM: 00:07 Patient medically screened. cp 01:00 Differential diagnosis: DKA, hyperglycemia, new onset diabetes. cp 04:15 Data reviewed: vital signs, nurses notes, lab test result(s), radiologic studies, CT cp scan. 04:15 Counseling: I had a detailed discussion with the patient and/or guardian regarding: the cp historical points, exam findings, and any diagnostic results supporting the discharge/admit diagnosis, lab results, radiology results, the need for outpatient follow up, for definitive care, a family practitioner, to return to the emergency department if symptoms worsen or persist or if there are any questions or concerns that arise at home. Response to treatment: the patient's symptoms have markedly improved after treatment, and as a result, I will discharge patient. ED course: VSS. Labs and CT abdomen/pelvis reviewed. Will discharge to home for continued monitoring. Patient instructed on need for urgent f/u with family physician. 05/01 00:20 Order name: Glucose, Ancillary Testing; Complete Time: 00:32 EDAR 05/01 00:32 Interpretation: Reviewed. 05/01 00:33 Order name: Basic Metabolic Panel; Complete Time: 03:14 05/01 03:17 Interpretation: Normal except: NA 134; CO2 17; GLUC 371; CA 8.1. 05/01 00:33 Order name: CBC with Diff; Complete Time: 01:19 05/01 01:20 Interpretation: Normal except: WBC 13.40; MCHC 36.9; REGINA% 78.7; LYM% 12.2; NEUT A 10.6. 05/01 00:33 Order name: Hepatic Function; Complete Time: 03:14 05/01 04:05 Interpretation: Normal except: ALK 166; ALB 3.3; GLOB 3.7; A/G 0.9. 05/01 00:33 Order name: Lipase; Complete Time: 03:14 05/01 00:33 Order name: Ketone, Serum; Complete Time: 03:14 05/01 02:20 Interpretation: Reviewed. 05/01 00:34 Order name: CT Abd/Pelvis - IV Contrast Only 05/01 01:02 Order name: Urine Dipstick-Ancillary; Complete Time: 01:19 EDAR 05/01 01:20 Interpretation: Normal except: UGLUC 2+; UKET 3+. 05/01 03:07 Order name: Glucose, Ancillary Testing; Complete Time: 03:14 EDAR 05/01 04:20 Order name: Glucose, Ancillary Testing EDAR 05/01 00:33 Order name: IV Saline Lock; Complete Time: 01:03 05/01 00:33 Order name: Labs collected and sent; Complete Time: 01:03 05/01 00:33 Order name: Urine Dipstick-Ancillary (obtain specimen); Complete Time: 01:03 05/01 02:50 Order name: Accucheck Blood Glucose; Complete Time: 03:07 cp Administered Medications: 01:03 Drug: NS 0.9% 1000 ml Route: IV; Rate: 1 bolus; Site: right antecubital; sj1 02:27 Follow up: IV Intake: 1000ml sj1 01:03 Drug: NS 0.9% 1000 ml Route: IV; Rate: 1 bolus; Site: right antecubital; sj1 02:27 Follow up: IV Intake: 1000ml sj1 03:30 Drug: NovoLIN R (insulin regular human) 5 units {Co-Signature: dc2 (Marivel Melvin sj1 RN).} Route: Sub-Q; Site: right lower abdomen; 04:19 Follow up: Response: No adverse reaction sj1 03:33 Drug: NS 0.9% 1000 ml Route: IV; Rate: 1 bolus; Site: right antecubital; sj1 04:06 Follow up: IV Intake: 1000ml sj1 04:20 Follow up: IV Intake: 1000ml sj1 Point of Care Testing: Blood Glucose: 02:57 Blood Glucose: 302 mg/dL; sj1 Ranges: Critical Glucose Levels:Adult <50 mg/dl or >400 mg/dl <40 mg/dl or >180 mg/dl Disposition: 04:20 Chart complete. cp 06:50 Co-signature as Attending Physician, Nehemias Guerrero MD. [email or web address] Disposition Summary: 05/01/21 04:16 Discharge Ordered Location: Home cp Problem: new cp Symptoms: have improved cp Condition: Stable cp Diagnosis - Diabetes mellitus due to underlying condition with hyperglycemia cp Followup: cp - With: Private Physician - When: 2 - 3 days - Reason: diabetes mellitus Discharge Instructions: - Discharge Summary Sheet cp - Type 2 Diabetes Mellitus, Diagnosis, Adult cp - Hyperglycemia cp - Form - Daily Diabetes Record cp - Blood Glucose Monitoring, Adult cp - Diabetes Mellitus and Nutrition, Adult cp Forms: - Medication Reconciliation Form cp - Thank You Letter cp - Antibiotic Education cp - Prescription Opioid Use cp Prescriptions: - metformin 500 mg Oral tablet - take 1 tablet by ORAL route 2 times per day with morning and evening meals; 60 cp tablet; Refills: 0, Product Selection Permitted Signatures: Dispatcher [facility] Sean Lynn PA PA cp Holmes, Maurice, MD MD [email or web address] Vika Mclaughlin, RN RN 3 Darcie Macdonald RN RN sj1 Marivel Melvin RN dc2
--- NOTE | 2021-05-01 04:17 | ER ---
Nurse's Notes [facility] Name: Naresh Wheatley Age: 45 yrs Sex: Male : 1975 Arrival Date: 04/30/2021 Time: 23:56 Bed 15 Private MD: Diagnosis: Diabetes mellitus due to underlying condition with hyperglycemia Presentation: 05/01 00:00 Chief complaint: Patient states: that his blood sugar at home was 539 and just very lh3 thirsty. Patient denies any medical history. states he has not been to the doctor since his doctor 10 years ago. Denies any other symptim. Coronavirus screen: Vaccine status: Patient reports being unvaccinated. Ebola Screen: No symptoms or risks identified at this time. Initial Sepsis Screen: Does the patient meet any 2 criteria? No. Patient's initial sepsis screen is negative. Does the patient have a suspected source of infection? No. Patient's initial sepsis screen is negative. Risk Assessment: Do you want to hurt yourself or someone else? Patient reports no desire to harm self or others. Onset of symptoms was April 2021. 00:00 Method Of Arrival: Ambulatory 3 00:00 Acuity: HCAGO 2 lh3 Triage Assessment: 00:04 General: Appears in no apparent distress. Behavior is calm, cooperative, appropriate lh3 for age. Pain: Denies pain. Historical: - Allergies: 00:04 No Known Allergies; lh3 - PMHx: 00:04 None; lh3 - Immunization history:: Adult Immunizations not up to date. - Social history:: Smoking status: Patient reports the use of cigarette tobacco products, smokes one pack cigarettes per day. Screenin:04 Abuse screen: Denies threats or abuse. Denies injuries from another. Nutritional sj1 screening: No deficits noted. Tuberculosis screening: No symptoms or risk factors identified. Fall Risk None identified. Assessment: 01:04 General: Appears in no apparent distress. Behavior is calm, cooperative, appropriate sj1 for age. Pain: Complains of pain in abdomen and back. Neuro: No deficits noted. Cardiovascular: No deficits noted. Respiratory: No deficits noted. GI: No deficits noted. : Reports urinary frequency. EENT: No deficits noted. Derm: No deficits noted. Musculoskeletal: No deficits noted. Vital Signs: 00:00 BP 149 / 111; Pulse 110; Resp 18; Temp 99.1(O); Pulse Ox 99% on R/A; Height 5 ft. 9 in. lh3 (175.26 cm) (R); 02:57 BP 142 / 82; Pulse 89; Resp 18; Temp 98.2; Pulse Ox 100% ; Pain 0/10; sj1 04:30 BP 140 / 80; Pulse 76; Resp 18; Temp 98.4; Pulse Ox 99% ; Pain 0/10; sj1 ED Course: 04/30 23:56 Patient arrived in ED. wm 05/01 00:04 Triage completed. lh3 00:04 Arm band placed on left wrist. lh3 00:07 Sean Lynn PA is PHCP. cp 00:07 Nehemias Guerrero MD is Attending Physician. cp 01:03 Urine Microscopic Only Sent. sj1 01:03 No provider procedures requiring assistance completed. Inserted saline lock: 18 gauge sj1 in right antecubital area, using aseptic technique. Blood collected. 01:04 Patient has correct armband on for positive identification. Bed in low position. Call sj1 light in reach. Side rails up X 1. 03:07 CT Abd/Pelvis - IV Contrast Only Sent. sj1 03:18 CT Abd/Pelvis - IV Contrast Only In Process Unspecified. EDMS 04:19 IV discontinued, intact, bleeding controlled, No redness/swelling at site. sj1 Administered Medications: 01:03 Drug: NS 0.9% 1000 ml Route: IV; Rate: 1 bolus; Site: right antecubital; sj1 02:27 Follow up: IV Intake: 1000ml sj1 01:03 Drug: NS 0.9% 1000 ml Route: IV; Rate: 1 bolus; Site: right antecubital; sj1 02:27 Follow up: IV Intake: 1000ml sj1 03:30 Drug: NovoLIN R (insulin regular human) 5 units {Co-Signature: [email or web address] (Marivel Melvin sj1 RN).} Route: Sub-Q; Site: right lower abdomen; 04:19 Follow up: Response: No adverse reaction sj1 03:33 Drug: NS 0.9% 1000 ml Route: IV; Rate: 1 bolus; Site: right antecubital; sj1 04:06 Follow up: IV Intake: 1000ml sj1 04:20 Follow up: IV Intake: 1000ml sj1 Point of Care Testing: Blood Glucose: 02:57 Blood Glucose: 302 mg/dL; sj1 Ranges: Intake: 02:27 IV: 1000ml; Total: 1000ml. sj1 02:27 IV: 1000ml; Total: 2000ml. sj1 04:06 IV: 1000ml; Total: 3000ml. sj1 04:20 IV: 1000ml; Total: 4000ml. sj1 Outcome: 04:16 Discharge ordered by MD. cp 04:18 Discharged to home ambulatory. sj1 04:18 Condition: stable 04:18 Discharge instructions given to patient, Instructed on discharge instructions, follow up and referral plans. Demonstrated understanding of instructions. 04:31 Patient left the ED. sj1 Signatures: Dispatcher [employer] EDMS Sean Lynn PA PA cp Marsh, Wendy wm Hardee, Latisha RN RN 3 Darcie Macdonald RN RN sj1 Marivel Melvin RN dc2
[2021-05-01 04:42] VITALS: BP 140/80; TEMP 98.4; O2SAT 99
--- NOTE | 2021-05-03 11:28 | RAD REPORT ---
EXAM DESCRIPTION: CT Abdomen and Pelvis With Intravenous Contrast CLINICAL HISTORY: The patient is 45 years old and is Male; ABD PAIN TECHNIQUE: Axial computed tomography images of the abdomen and pelvis with intravenous contrast. S agittal and coronal reformatted images were created and reviewed. This CT exam was performed using one or more of the following dose reduction techniques: automated exposure control, adjustment of t he mA and/or kV according to patient size, and/or use of iterative reconstruction technique. COMPARISON: No relevant prior studies available. FINDINGS: LUNG BASES: Unremarkable. No mass. No consolidation. ABDOMEN: LIVER: The liver is enlarged and diffusely fatty. GALLBLADDER AND BILE DUCTS: Gallbladder is contracted. PANCREAS: No ductal dilation. No mass. SPLEEN: Unremarkable. ADRENALS: Unremarkable. No mass. KIDNEYS AND URETERS: A 3.2 cm left renal cyst is present. The kidneys enhance symmetrically. The re is no hydronephrosis or hydroureter of either kidney. No obstructing renal or ureteral calculus is seen. STOMACH AND BOWEL: The stomach is decompressed. The small bowel is normal in caliber. A moderate amount stool is present throughout colon. There is no mucosal thickening or evidence of bowel obstru ction. PELVIS: APPENDIX: The appendix is normal in caliber without surrounding inflammation. BLADDER: The bladder is significantly distended. REPRODUCTIVE: Unremarkable as visualized. ABDOMEN and PELVIS: INTRAPERITONEAL SPACE: Unremarkable. No free air. No significant fluid collection. BONES/JOINTS: No acute fracture. SOFT TISSUES: There are small bilateral fat containing inguinal hernias. VASCULATURE: Unremarkable. No abdominal aortic aneurysm. LYMPH NODES: Unremarkable. No enlarged lymph nodes. IMPRESSION: No acute findings on this contrasted CT of the abdomen and pelvis to explain the patient 's symptoms. Electronically signed by: Juany Richter MD 05/01/2021 3:34 AM CDT Due to temporary technical issues with the PACS/Fluency reporting system, reports are being signed by the in house radiologist without review as a courtesy to ensure prompt reporting. The interpreting r adiologist is fully responsible for the content of the report.
== END 2021-05-01 04:31 | disposition home or self-care (01) ==
LOC: ER 23:41
DX: E11.65 Type 2 diabetes mellitus with hyperglycemia (principal); F17.210 Nicotine dependence, cigarettes, uncomplicated
CPT/HCPCS: 36415; 74177; 80048; 80076; 81003; 82010; 82947; 83690; 85025; 96372; 99284; J7030; Q9967

== ENCOUNTER 2021-06-05 12:20 | Emergency (ER) | payer SELFPAY ==
[2021-06-05 12:55] LABS: Protime INR 1.03
--- NOTE | 2021-06-05 12:57 | RAD REPORT ---
EXAM DESCRIPTION: CT - Head Brain Wo Cont - 06/05/2021 12:45 pm CLINICAL HISTORY: Facial droop COMPARISON: None. TECHNIQUE: Computed axial tomography of the head was obtained. IV contrast was not requested. All CT scans are performed using dose optimization technique as appropriate and may include automated exposure control or mA/KV adjustment according to patient size. FINDINGS: An intracranial bleed is not seen . The ventricles are normal in caliber. No extra-axial fluid collection is noted. Cerebellar tonsillar ectopia Fluid within the sinuses/ mastoids is not seen. IMPRESSION: No acute intracranial abnormality is seen. If patient's symptoms persist MRI of the bra in would be recommended.
[2021-06-05 13:00] LABS: Absolute Lymphocytes (CBC) 1.2 K/uL (0.7-4.9); Basophils % 0.8 % (0-1.3); Hematocrit 45.4 % (39.6-49.0); Lymphocytes % 16.2 % (15.3-44.8); MPV 8.8 fL (7.6-11.3); RBC Red Blood Cell Count 5.02 M/uL (4.33-5.43)
[2021-06-05 13:09] LABS: ALT/SGPT 74 U/L (12-78); AST/SGOT 28 U/L (15-37); Albumin 4.1 g/dL (3.4-5.0); Alkaline Phosphatase 119 U/L (45-117); BUN Blood Urea Nitrogen 15 mg/dL (7-18); Bicarbonate 25 mmol/L (21-32); Bilirubin Direct < 0.1 mg/dL (0-0.2); Bilirubin Total 0.5 mg/dL (0.2-1.0); Glucose Level 157 mg/dL (74-106); Magnesium 2.2 mg/dL (1.8-2.4); NT PRO-BNP 41 pg/mL (<125); Potassium 4.1 mmol/L (3.5-5.1); Protein, Total 7.6 g/dL (6.4-8.2); Sodium Level 138 mmol/L (136-145); Troponin (Emerg Dept Use Only) < 0.02 ng/mL (0.0-0.045)
--- NOTE | 2021-06-05 13:47 | RAD REPORT ---
EXAM DESCRIPTION: Gely Single View06/05/2021 1:18 pm CLINICAL HISTORY: Hypertension COMPARISON: 2015 FINDINGS: The lungs appear clear of acute infiltrate. The heart is mildly enlarged IMPRESSION: No acute abnormalities displayed
--- NOTE | 2021-06-05 14:21 | EDPHYS ---
Physician Documentation [facility] Name: Naresh Wheatley Age: 45 yrs Sex: Male : 1975 Arrival Date: 06/05/2021 Time: 12:21 Bed 8 Private MD: ED Physician Chelly Malik HPI: 06/05 14:16 This 45 yrs old Male presents to ER via Ambulatory with complaints of High ma2 Blood Pressure, Facial Droop. 14:16 Onset: The symptoms/episode began/occurred suddenly, 1 day(s) ago. Associated signs and ma2 symptoms: Pertinent positives: facial droop, Pertinent negatives: chest pain, dizziness, dyspnea, nausea, visual changes, vomiting, weakness. Severity of symptoms: At its worst the blood pressure was mild, in the emergency department the blood pressure is now normal. The blood pressure problem is resolved. The patient has not experienced similar symptoms in the past. here with right facial droop for 1 day, moderate constant . Historical: - Allergies: 12:28 No Known Allergies; aa5 - PMHx: 12:28 Diabetes mellitus; aa5 - PSHx: 12:28 None; aa5 - Immunization history:: Client reports having NOT received the Covid vaccine. - Social history:: Smoking status: Patient reports the use of cigarette tobacco products, smokes one pack cigarettes per day. Patient/guardian denies using alcohol, street drugs, The patient lives with family. - Family history:: not pertinent. ROS: 14:16 Constitutional: Negative for fever, chills, and weight loss. ma2 14:16 All other systems are negative. Exam: 14:16 Constitutional: This is a well developed, well nourished patient who is awake, alert, ma2 and in no acute distress. Head/Face: Normocephalic, atraumatic. Eyes: Pupils equal round and reactive to light, extra-ocular motions intact. Lids and lashes normal. Conjunctiva and sclera are non-icteric and not injected. Cornea within normal limits. Periorbital areas with no swelling, redness, or edema. ENT: Nares patent. No nasal discharge, no septal abnormalities noted. Tympanic membranes are normal and external auditory canals are clear. Oropharynx with no redness, swelling, or masses, exudates, or evidence of obstruction, uvula midline. Mucous membranes moist. Neck: Trachea midline, no thyromegaly or masses palpated, and no cervical lymphadenopathy. Supple, full range of motion without nuchal rigidity, or vertebral point tenderness. No Meningismus. Chest/axilla: Normal chest wall appearance and motion. Nontender with no deformity. No lesions are appreciated. Cardiovascular: Regular rate and rhythm with a normal S1 and S2. No gallops, murmurs, or rubs. Normal PMI, no JVD. No pulse deficits. Respiratory: Lungs have equal breath sounds bilaterally, clear to auscultation and percussion. No rales, rhonchi or wheezes noted. No increased work of breathing, no retractions or nasal flaring. Abdomen/GI: Soft, non-tender, with normal bowel sounds. No distension or tympany. No guarding or rebound. No evidence of tenderness throughout. Back: No spinal tenderness. No costovertebral tenderness. Full range of motion. Skin: Warm, dry with normal turgor. Normal color with no rashes, no lesions, and no evidence of cellulitis. MS/ Extremity: Pulses equal, no cyanosis. Neurovascular intact. Full, normal range of motion. Neuro: Awake and alert, GCS 15, oriented to person, place, time, and situation. right facial droop with right facial weakness 3/5, including forehead, he is able to close eye, otherwise rest of Cranial nerves areI grossly intact. Motor strength 5/5 in all extremities. Sensory grossly intact. Cerebellar exam normal. Normal gait. Psych: Awake, alert, with orientation to person, place and time. Behavior, mood, and affect are within normal limits. Vital Signs: 12:26 BP 130 / 90; Pulse 81; Resp 18 S; Temp 97.7(TE); Pulse Ox 100% on R/A; Weight 97.07 kg aa5 (R); Height 5 ft. 9 in. (175.26 cm) (R); 13:05 BP 150 / 56 LA (auto/); Pulse 71; Resp 18; Pulse Ox 100% on R/A; ap3 13:59 BP 121 / 70; Pulse 73; Resp 18; Pulse Ox 99% on R/A; ap3 12:26 Body Mass Index 31.60 (97.07 kg, 175.26 cm) aa5 MDM: 12:29 Patient medically screened. ma2 14:16 Differential diagnosis: facial palsy, unlikely stroke or migrain or tension headache. ma2 Data reviewed: vital signs, nurses notes. Counseling: I had a detailed discussion with the patient and/or guardian regarding: the historical points, exam findings, and any diagnostic results supporting the discharge/admit diagnosis, the presence of at least one elevated blood pressure reading (>120/80) during this emergency department visit, the need for outpatient follow up. Response to treatment: the patient's symptoms have markedly improved after treatment. 06/05 12:30 Order name: Basic Metabolic Panel ma2 06/05 12:30 Order name: CBC with Diff ma2 06/05 12:30 Order name: LFT's; Complete Time: 13:37 ma2 06/05 12:30 Order name: Magnesium; Complete Time: 13:37 ma2 06/05 12:30 Order name: NT PRO-BNP; Complete Time: 13:37 ma2 06/05 12:30 Order name: PT-INR; Complete Time: 13:37 ma2 06/05 12:30 Order name: Troponin (emerg Dept Use Only); Complete Time: 13:37 ma2 06/05 12:30 Order name: XRAY Chest (1 view); Complete Time: 14:39 ma2 06/05 12:30 Order name: EKG; Complete Time: 12:31 ma2 06/05 12:30 Order name: Cardiac monitoring; Complete Time: 12:44 ma2 06/05 12:30 Order name: EKG - Nurse/Tech; Complete Time: 12:39 ma2 06/05 12:30 Order name: Basic Metabolic Panel; Complete Time: 13:37 EDMS 06/05 12:30 Order name: CBC with Automated Diff; Complete Time: 13:37 EDMS 06/05 12:30 Order name: CT Head Brain wo Cont; Complete Time: 13:37 ma2 06/05 12:30 Order name: IV Saline Lock; Complete Time: 12:44 ma2 06/05 12:30 Order name: Labs collected and sent; Complete Time: 12:44 ma2 06/05 12:30 Order name: O2 Per Protocol; Complete Time: 12:44 ma2 06/05 12:30 Order name: O2 Sat Monitoring; Complete Time: 12:44 ma2 Administered Medications: No medications were administered Disposition Summary: 06/05/21 14:20 Discharge Ordered Location: Home ma2 Condition: Stable ma2 Diagnosis - Huerta's palsy - right ma2 Followup: ma2 - With: Private Physician - When: Tomorrow - Reason: Continuance of care Followup: ma2 - With: Alex Cutler MD - When: Tomorrow - Reason: If symptoms return, Continuance of care Discharge Instructions: - Discharge Summary Sheet ma2 - Huerta Palsy, Adult ma2 - Neuropathic Pain ma2 Forms: - Medication Reconciliation Form ma2 - Thank You Letter ma2 - Antibiotic Education ma2 - Prescription Opioid Use ma2 Prescriptions: - Neurontin 300 mg Oral Capsule - take 1 capsule by ORAL route At bedtime; 20 capsule; Refills: 0, Product ma2 Selection Permitted - Acyclovir 400 mg Oral Tablet - take 1 tablet by ORAL route every 8 hours; 30 tablet; Refills: 0, Product ma2 Selection Permitted - Medrol (Mason) 4 mg Oral Tablets, Dose Pack - take 1 tablet by ORAL route as directed - follow package instructions; 1 ma2 packet; Refills: 0, Product Selection Permitted Signatures: Dispatcher [employer] Sindi Knight RN RN aa5 Chelly Malik MD MD ma2
--- NOTE | 2021-06-05 14:21 | ER ---
Nurse's Notes [facility] Name: Naresh Wheatley Age: 45 yrs Sex: Male : 1975 Arrival Date: 06/05/2021 Time: 12:21 Bed 8 Private MD: Diagnosis: Huerta's palsy-right Presentation: 06/05 12:26 Chief complaint: Pt's states "his face is droopy and his eye keeps blinking since aa5 last night, he's been complaining of headaches". Right facial droop noted. Pt's states "his blood pressure was reading high and it was 181/161 this morning". Coronavirus screen: At this time, the client does not indicate any symptoms associated with coronavirus-19. Ebola Screen: No symptoms or risks identified at this time. Initial Sepsis Screen: Does the patient meet any 2 criteria? No. Patient's initial sepsis screen is negative. Does the patient have a suspected source of infection? No. Patient's initial sepsis screen is negative. Risk Assessment: Do you want to hurt yourself or someone else? Patient reports no desire to harm self or others. Onset of symptoms was May 2021. 12:26 Method Of Arrival: Ambulatory aa5 12:26 Acuity: CHAGO 2 aa5 Historical: - Allergies: 12:28 No Known Allergies; aa5 - PMHx: 12:28 Diabetes mellitus; aa5 - PSHx: 12:28 None; aa5 - Immunization history:: Client reports having NOT received the Covid vaccine. - Social history:: Smoking status: Patient reports the use of cigarette tobacco products, smokes one pack cigarettes per day. Patient/guardian denies using alcohol, street drugs, The patient lives with family. - Family history:: not pertinent. Screenin:44 Abuse screen: Denies threats or abuse. Nutritional screening: No deficits noted. ap3 Tuberculosis screening: No symptoms or risk factors identified. Fall Risk None identified. Assessment: 12:43 General: Appears in no apparent distress. Behavior is calm, cooperative, appropriate ap3 for age. Pain: Denies pain. Neuro: Level of Consciousness is awake, alert, obeys commands, Oriented to person, place, time, situation, Lapel Padder are equal bilaterally Moves all extremities. Gait is steady, Speech is normal, Facial droop on right. Cardiovascular: Patient's skin is warm and dry. Respiratory: Airway is patent Respiratory effort is even, unlabored, Respiratory pattern is regular, symmetrical. 12:51 Neuro: ap3 13:05 Reassessment: Patient and/or family updated on plan of care and expected duration. Pain ap3 level reassessed. Patient is alert, oriented x 3, equal unlabored respirations, skin warm/dry/pink. 13:08 Reassessment: Xray at bedside. ap3 Vital Signs: 12:26 BP 130 / 90; Pulse 81; Resp 18 S; Temp 97.7(TE); Pulse Ox 100% on R/A; Weight 97.07 kg aa5 (R); Height 5 ft. 9 in. (175.26 cm) (R); 13:05 BP 150 / 56 LA (auto/); Pulse 71; Resp 18; Pulse Ox 100% on R/A; ap3 13:59 BP 121 / 70; Pulse 73; Resp 18; Pulse Ox 99% on R/A; ap3 12:26 Body Mass Index 31.60 (97.07 kg, 175.26 cm) aa5 ED Course: 12:21 Patient arrived in ED. am2 12:26 Arm band placed on. aa5 12:28 Triage completed. aa5 12:29 Chelly Malik MD is Attending Physician. ma2 12:31 Renetta Hodgson, RN is Primary Nurse. ap3 12:39 EKG done, by ED staff, reviewed by Chelly Malik MD. em1 12:43 Inserted saline lock: 20 gauge in right antecubital area, using aseptic technique. ap3 Blood collected. 12:44 CT Head Brain wo Cont In Process Unspecified. EDMS 12:44 Patient has correct armband on for positive identification. Bed in low position. Call ap3 light in reach. Side rails up X2. Adult w/ patient. monitor car operator on. Pulse ox on. NIBP on. Door closed. Noise minimized. 13:12 XRAY Chest (1 view) In Process Unspecified. EDMS 14:20 Alex Cutler MD is Referral Physician. ma2 14:44 No provider procedures requiring assistance completed. IV discontinued, intact, ap3 bleeding controlled, No redness/swelling at site. Pressure dressing applied. Administered Medications: No medications were administered Outcome: 14:20 Discharge ordered by . ma2 14:44 Discharged to home ambulatory, with family. ap3 14:44 Condition: good 14:44 Discharge instructions given to patient, family, Instructed on discharge instructions, follow up and referral plans. medication usage, Demonstrated understanding of instructions, follow-up care, medications, Prescriptions given X 3. 14:44 Patient left the ED. ap3 Signatures: Dispatcher [employer] EDMS Naresh Barrera em1 Sindi Gomes, RN RN aa5 Renetta Lopez am2 Chelly Malik MD MD ma2 Renetta Hodgson RN RN ap3 Corrections: (The following items were deleted from the chart) 12:29 12:26 Acuity: CHAGO 3 aa5 aa5 12:32 12:26 Chief complaint: Pt's states "his face is droopy and his eye keeps blinking aa5 since last night, he's been complaining of headaches". Right facial droop noted. aa5
[2021-06-05 14:56] VITALS: TEMP 97.7
[2021-06-05 14:58] VITALS: BP 121/70; O2SAT 99
== END 2021-06-05 14:44 | disposition home or self-care (01) ==
LOC: ER 12:20
DX: G51.0 Bell's palsy (principal); E11.9 Type 2 diabetes mellitus without complications; F17.210 Nicotine dependence, cigarettes, uncomplicated
CPT/HCPCS: 36415; 70450; 71045; 80048; 80076; 83735; 83880; 84484; 85025; 85610; 93005; 99284